=== PATIENT | female | born 1975 | race Caucasian/White ===

== ENCOUNTER → 2024-07-06 14:31 | Outpatient (BNVA) | payer OTHER, SELFPAY | PROVIDERS: Visit Provider Nurse Practitioner Family | DX: I10 Essential (primary) hypertension (principal); R53.83 Other fatigue; D64.9 Anemia, unspecified; N95.1 Menopausal and female climacteric states | CPT/HCPCS: 80053; 82672; 83550; 84144; 84403; 84439; 84443; 85025 ==